=== PATIENT | male | born 1945 ===

== ENCOUNTER 2017-11-22 14:56 | Observation (INO) | payer MEDICARE, OTHER ==
[2017-11-22 15:13] VITALS: BMI 28.8
[2017-11-22] MEDS ORDERED: Aspirin 325 mg EC Tablets PO STA (15:25)
[2017-11-22] MEDS ORDERED: Sodium Chloride 0.9% 1,000 ML IV ONE (15:25)
--- NOTE | 2017-11-22 15:35 | C.PDOC ---
History Of Present Illness 72 y/o male presents to ED sent by PMD for abnormal EKG and with c/o back pain. Patient states yesterday he developed midsternal sharp severe chest pain while walking his child from school associated with sob. Patient states he took 2 Advil which resolved chest pain, but today back pain persisted. Patient denies fever, chills, cough, leg swelling, abdominal pain or nausea. MICHELET Risk Score for UA/NSTEMI - MICHELET Risk Score Age > 64: YES 3 or more CAD Risk Factors: NO Known CAD (Stenosis greater than 50%): NO Aspirin use in past 7 days: NO Severe Angina: YES MICHELET Score: 2 % risk at 14 days of: all cause mortality, new or recurrent IN, or severe recurrent ischemia requiring urgen revascularization: 8% Curb-65 Severity Score - CURB-65 Severity Score Confusion: No Bun >19mg/dl (>7mmol/L): No Respiratory Rate greater than/equal to 30: No Systolic BP <90 or Diastolic BP less than/equal 60mmHg: No Age >64: Yes Curb-65 Score: 1 Percentage 30-day mortality: 2.7% Time Seen by Provider: 11/22/17 15:16 Chief Complaint (Nursing): Chest Pain History Per: Patient History/Exam Limitations: no limitations Onset/Duration Of Symptoms: Days Current Symptoms Are (Timing): Still Present Past Medical History Reviewed: Historical Data, Nursing Documentation, Vital Signs Vital Signs: Last Vital Signs Temp 98.2 F 11/22/17 15:05 Pulse 75 11/22/17 16:48 Resp 16 11/22/17 16:48 BP 140/88 11/22/17 16:48 Pulse Ox 100 11/22/17 17:44 - Medical History PMH: No Chronic Diseases Surgical History: Appendectomy Family History: States: No Known Family Hx - Social History Hx Alcohol Use: No Hx Substance Use: No - Immunization History Hx Tetanus Toxoid Vaccination: No Hx Influenza Vaccination: No Hx Pneumococcal Vaccination: No Review Of Systems Constitutional: Negative for: Fever, Chills Cardiovascular: Positive for: Chest Pain Respiratory: Positive for: SOB with Excertion. Negative for: Cough Gastrointestinal: Negative for: Nausea, Vomiting Genitourinary: Negative for: Dysuria, Hematuria Musculoskeletal: Positive for: Back Pain Skin: Negative for: Rash Physical Exam - Physical Exam Appears: Non-toxic, No Acute Distress Skin: Warm, Dry, No Rash Head: Atraumatic, Normacephalic Eye(s): bilateral: Normal Inspection Oral Mucosa: Moist Neck: Supple Cardiovascular: Rhythm Regular Respiratory: Normal Breath Sounds, No Rales, No Rhonchi, No Wheezing Gastrointestinal/Abdominal: Soft, No Tenderness, No Guarding, No Rebound Extremity: No Pedal Edema, No Calf Tenderness, Capillary Refill (<2 seconds) Neurological/Psych: Oriented x3, Normal Speech (speaking in full sentences) ED Course And Treatment - Laboratory Results Result Diagrams: 11/22/17 16:01 11/22/17 16:01 Lab Interpretation: No Acute Changes ECG: Interpreted By Me, Viewed By Me (DR Falcon) ECG Rhythm: Sinus Rhythm ECG Interpretation: No Acute Changes Rate From EC (q waves in lead 2) O2 Sat by Pulse Oximetry: 100 (RA) Pulse Ox Interpretation: Normal Medical Decision Making Medical Decision Making: Impression: Chest pain Plan: * EKG * Blood work * Aspirin * CXR * IV fluids * UA Progress: CXR shows Enlarged cardiomediastinal silhouette. Mediastinal prominence may be secondary to aortic ectasia, however alternatives including adenopathy are not excluded, as per radiologist Dr Valdivia Labs reviewed and unremarkable, no leukocytosis, no renal disease or electrolyte abnormality. Lipid panel WNL and troponin negative. During ED observation patient remained in no acute distress. He complains of pain to upper back mild at this time. Based on history and findings recommend observation admission for chest pain, with serial labs and trop. Patient agrees to plan. Will call Dr Rahman who admits for Dr Thompson [phone] Rahman [phone] Rahman who accepted obs-tele admission for patient Disposition - Disposition Disposition: HOSPITALIZED Disposition Time: 16:55 Condition: STABLE - POA Present On Arrival: None - Clinical Impression Clinical Impression: Chest pain - PA / MANAGER PROJECT / Resident Statement MD/DO has reviewed & agrees with the documentation as recorded. - Scribe Statement The provider has reviewed the documentation as recorded by the Aureaibmike Blount All medical record entries made by the Scribe were at my direction and personally dictated by me. I have reviewed the chart and agree that the record accurately reflects my personal performance of the history, physical exam, medical decision making, and the department course for this patient. I have also personally directed, reviewed, and agree with the discharge instructions and disposition. Decision To Admit - Pt Status Changed To: Hospital Disposition Of: Observation - . Bed Request Type: Telemetry Admitting Physician: Sally Rahman Patient Diagnosis: Chest pain
[2017-11-22 16:06] LABS: BASO % 0.5 % (0.0-2.0); EOS # 0.1 K/uL (0.0-0.7); EOS % 1.7 % (0.0-4.0); HEMOGLOBIN 14.5 g/dL (12.0-18.0); LYMPH % 42.3 % (20.0-40.0); MEAN CELL VOLUME 94.1 fL (80.0-94.0); MEAN CORPUSCULAR HEMOGLOBIN 31.2 pg (27.0-31.0); MEAN CORPUSCULAR HGB CONC 33.2 g/dL (33.0-37.0); MONO # 0.9 K/uL (0.0-0.8); MONO % 12.4 % (0.0-10.0); NEUT # 3.1 K/uL (1.8-7.0); NEUT % 43.1 % (50.0-75.0); NRBC % 0.2 % (0.0-2.0); RBC 4.63 Mil/uL (4.40-5.90); RED CELL DISTRIBUTION WIDTH 12.8 % (11.5-14.5); WHITE BLOOD COUNT 7.2 K/uL (4.8-10.8)
[2017-11-22] MEDS ORDERED: Sodium Chloride 0.9% 1,000 ML ONE (16:08)
[2017-11-22] MEDS ORDERED: Aspirin 325 mg EC Tablets PO ONE (16:08)
[2017-11-22 16:14] LABS: INR 1.2; PROTHROMBIN TIME 13.1 SECONDS (9.7-12.2)
--- NOTE | 2017-11-22 16:14 | RAD ---
HISTORY: chest pain COMPARISON: None available. TECHNIQUE: Chest PA and lateral FINDINGS: LUNGS: No focal consolidation. Please note that chest x-ray has limited sensitivity for the detection of pulmonary masses. PLEURA: No significant pleural effusion identified. No definite pneumothorax . CARDIOVASCULAR: Enlargement of the cardiomediastinal silhouette. Enlargement of the mediastinum may be secondary to aortic ectasia however alternatives including adenopathy are not excluded. OSSEOUS STRUCTURES: Degenerative changes. VISUALIZED UPPER ABDOMEN: Unremarkable. OTHER FINDINGS: None. IMPRESSION: Enlarged cardiomediastinal silhouette. Mediastinal prominence may be secondary to aortic ectasia, however alternatives including adenopathy are not excluded. CT of the chest may be considered with IV contrast if indicated.
[2017-11-22 16:19] LABS: ALB/GLOB RATIO 1.1 (1.0-2.1); ALT/SGPT 39 U/L (21-72); AST/SGOT 31 U/L (17-59); BLOOD UREA NITROGEN 11 mg/dL (9-20); GFR NON-AFRICAN AMERICAN > 60; HDL CHOLESTEROL 52 mg/dL (30-70)
[2017-11-22 16:29] LABS: LDL CHOLESTEROL 91 mg/dL (0-129)
[2017-11-22 16:31] LABS: B-TYPE NATRIURETIC PEPTIDE 168 pg/mL (0-900); CK-MB 0.69 ng/mL (0.0-3.38)
[2017-11-22 16:43] LABS: URINE BILIRUBIN NEGATIVE (NEGATIVE); URINE BLOOD NEGATIVE (NEGATIVE); URINE CLARITY Clear (Clear); URINE COLOR Straw (YELLOW); URINE GLUCOSE (UA) NORMAL (Normal); URINE LEUKOCYTE ESTERASE NEG Leu/uL (Negative); URINE PROTEIN NEGATIVE (NEGATIVE); URINE UROBILINOGEN NORMAL mg/dL (0.2-1.0)
[2017-11-22] MEDS ORDERED: Nitroglycerin 2% Ointment Foilpak UD TOP PRN (18:04)
[2017-11-22] MEDS ORDERED: Nitroglycerin 2% Ointment Foilpak UD TOP ONE (18:46)
--- NOTE | 2017-11-22 19:05 | CP.PCM.HP ---
History of Present Illness - History of Present Illness History of Present Illness: Chief complaint: Chest pain History of present illness: 72-year-old male with no significant past medical history other than high cholesterol came to the office today, complaining of sudden onset of chest pain started yesterday, and the whole night he was having sudden onset of pain, radiating to the left side of the shoulder. Pain worse severe in character, and also associate with the sweating, and ADC feeling of palpitation. But he did not go to the hospital. He came to the office today. The pain is subsided now. But he is having some pain in the back. Is feeling otherwise well. EKG done in the office, showing some EKG changes, immediately patient was sent to the emergency room. Past medical history: High cholesterol Allergies no known drug allergy Personal history nonsmoker nonalcoholic. Family history noncontributory Review of systems: Patient is having no headache or visual symptoms, some back pain in the upper neck and upper back noted. No chest pain currently. Abdominal pain negative no leg swelling On examination: Vital signs stable. Chest bilateral good air entry no wheezing or rales noted regular heart sound Abdomen soft nontender. Labs reviewed Nonspecific. EKG nonspecific pain Chest x-ray showing evidence of by basilar atelectasis, hilar prominence. Recommend CT of the chest with contrast Assessment: 72-year-old male came to the office with a sudden onset of chest pain started yesterday. Now subsided. EKG changes noted. Also the x-ray chest changes noted. Recommended to have a CAT scan of the chest. Cardiology workup. Ongoing EKG changes with the chest pain. Cardiology workup. Will follow the patient. Explained to the patient in details about the plan in the office with Dr. Thompson Present on Admission - Present on Admission Any Indicators Present on Admission: No History of DVT/PE: No History of Uncontrolled Diabetes: No Urinary Catheter: No Decubitus Ulcer Present: No Past Patient History - Past Social History Smoking Status: Never Smoked - PSYCHIATRIC Hx Substance Use: No - SURGICAL HISTORY Hx Appendectomy: Yes Meds Allergies/Adverse Reactions: Allergies Allergy/AdvReac Type Severity Reaction Status Date / Time No Known Allergies Allergy Verified 11/22/17 15:12 Results - Vital Signs Recent Vital Signs: Last Vital Signs Temp 98.2 F 11/22/17 15:05 Pulse 73 11/22/17 18:42 Resp 22 11/22/17 18:42 BP 120/73 11/22/17 18:42 Pulse Ox 97 11/22/17 18:42 - Labs Result Diagrams: 11/22/17 16:01 11/22/17 16:01 Labs: Laboratory Results - last 24 hr 11/22/17 11/22/17 11/22/17 16:01 16:01 16:01 WBC 7.2 RBC 4.63 Hgb 14.5 Hct 43.6 MCV 94.1 H MCH 31.2 H MCHC 33.2 RDW 12.8 Plt Count 143 MPV 9.0 Neut % (Auto) 43.1 L Lymph % (Auto) 42.3 H Knott % (Auto) 12.4 H Eos % (Auto) 1.7 Baso % (Auto) 0.5 Neut # (Auto) 3.1 Lymph # (Auto) 3.0 Knott # (Auto) 0.9 H Eos # (Auto) 0.1 Baso # (Auto) 0.0 PT 13.1 H INR 1.2 APTT 37 H Sodium 139 Potassium 3.9 Chloride 101 Carbon Dioxide 30 Anion Gap 12 BUN 11 Creatinine 0.6 L Est GFR ( Amer) > 60 Est GFR (Non-Af Amer) > 60 Random Glucose 92 Calcium 9.0 Total Bilirubin 2.0 H AST 31 ALT 39 Alkaline Phosphatase 70 Total Creatine Kinase 93 CK-MB (Mass) 0.69 Troponin I < 0.0120 NT-Pro-B Natriuret Pep 168 Total Protein 7.7 Albumin 4.0 Globulin 3.8 Albumin/Globulin Ratio 1.1 Triglycerides 52 Cholesterol 162 LDL Cholesterol Direct 91 HDL Cholesterol 52 Urine Color Urine Clarity Urine pH Ur Specific Cushing Urine Protein Urine Glucose (UA) Urine Ketones Urine Blood Urine Nitrate Urine Bilirubin Urine Urobilinogen Ur Leukocyte Esterase Urine RBC (Auto) 11/22/17 16:37 WBC RBC Hgb Hct MCV MCH MCHC RDW Plt Count MPV Neut % (Auto) Lymph % (Auto) Knott % (Auto) Eos % (Auto) Baso % (Auto) Neut # (Auto) Lymph # (Auto) Knott # (Auto) Eos # (Auto) Baso # (Auto) PT INR APTT Sodium Potassium Chloride Carbon Dioxide Anion Gap BUN Creatinine Est GFR ( Amer) Est GFR (Non-Af Amer) Random Glucose Calcium Total Bilirubin AST ALT Alkaline Phosphatase Total Creatine Kinase CK-MB (Mass) Troponin I NT-Pro-B Natriuret Pep Total Protein Albumin Globulin Albumin/Globulin Ratio Triglycerides Cholesterol LDL Cholesterol Direct HDL Cholesterol Urine Color Straw Urine Clarity Clear Urine pH 7.0 Ur Specific Cushing 1.002 L Urine Protein Negative Urine Glucose (UA) Normal Urine Ketones Negative Urine Blood Negative Urine Nitrate Negative Urine Bilirubin Negative Urine Urobilinogen Normal Ur Leukocyte Esterase Neg Urine RBC (Auto) < 1
[2017-11-22] MEDS ORDERED: Iodixanol 320 MG/ML 100 ML BOTTLE IV ONE ×2 (20:22→20:59)
[2017-11-22 22:49] VITALS: RESP 20
[2017-11-23 01:37] LABS: CK-MB 0.91 ng/mL (0.0-3.38)
[2017-11-23] MEDS ORDERED: Caffeine Citrated **INJ** 20 MG/ML IV ONE (07:47)
[2017-11-23 08:29] VITALS: BP 124/80; PULSE 69; TEMP 97.7; O2SAT 95
--- NOTE | 2017-11-23 10:07 | CT ---
Date of service: 11/22/2017 PROCEDURE: CT Chest with contrast (Pulmonary Angiogram) HISTORY: aortic ectasia COMPARISON: Chest radiograph 11/22/2017. TECHNIQUE: Axial computed tomography images were obtained of the chest in the pulmonary arterial phase of enhancement. Coronal and sagittal reformatted images were created and reviewed. Intravenous contrast dose: Visipaque 320, 100 cc Radiation dose: Total exam DLP = 564.73 mGy-cm. This CT exam was performed using one or more of the following dose reduction techniques: Automated exposure control, adjustment of the mA and/or kV according to patient size, and/or use of iterative reconstruction technique. FINDINGS: PULMONARY ARTERIES: Unremarkable. No pulmonary embolism. AORTA: The ascending thoracic aorta is mildly dilated up to 4.2 cm. The thoracic aorta is normal caliber by the proximal arch which measures 3.4 cm. LUNGS: Unremarkable. No nodule, mass or pulmonary consolidation. PLEURAL SPACES: Unremarkable. No effusion or pneumothorax. HEART: Cardiomegaly. No pulmonary vascular congestion. No pericardial effusion. LYMPH NODES: No lymphadenopathy. 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 OTHER FINDINGS: Cirrhotic liver pattern. No focal mass identified. A small calcified granuloma seen at the dome at the right periphery. IMPRESSION: 1. No CT evidence of pulmonary embolus. 2. Dilatation of the ascending thoracic aorta is identified up to 4.2 cm terminating at the anterior arch as discussed above. 3. No infiltrate, pleural or pericardial effusion or significant lymphadenopathy. 4. Cirrhotic liver incidentally noted.
[2017-11-23 14:25] LABS: CK-MB 0.97 ng/mL (0.0-3.38)
--- NOTE | 2017-11-23 15:12 | CP.PCM.PN ---
Subjective - Date & Time of Evaluation Date of Evaluation: 11/23/17 Time of Evaluation: 15:12 - Subjective Subjective: PT CLEARED AND D/C BY DR. JOHNSON. TO F/U WITH HIM IN THE OFFICE WELL WITH Mick DIANE. SEE BELOW FOR D/C INSTRUCTIONS SENT WITH PT. NO FURTHER ORDERS. -FOLLOW UP WITH DR. JOHNSON IN THE OFFICE WITHIN 5 DAYS---CALL THE OFFICE TO MAKE AN APPOINTMENT. -FOLLOW UP WITH DR. DIANE (CARDIOLOGY) IN THE OFFICE WITHIN 5-7 DAYS---CALL THE OFFICE TO MAKE AN APPOINTMENT. -CONTINUE HOME MEDICATIONS USUAL. NO NEW PRESCRIPTIONS. -FOR FURTHER CONCERNS OR QUESTIONS, CONTACT DR. JOHNSON'S OFFICE. Objective - Vital Signs/Intake and Output Vital Signs (last 24 hours): Temp Pulse Resp BP Pulse Ox 97.7 F 69 20 124/80 95 11/23/17 08:28 11/23/17 08:28 11/23/17 08:28 11/23/17 08:28 11/23/17 08:28 Intake and Output: 11/23/17 11/23/17 06:59 18:59 Intake Total 0 Balance 0 - Medications Medications: Current Medications Nitroglycerin (Nitro-Bid 2% Oint) 1 ea TOP Q6 PRN PRN Reason: chest pain Pantoprazole Sodium (Protonix Inj) 40 mg IVP DAILY CHARLENE Last Admin: 11/23/17 10:02 Dose: Not Given Pneumococcal Polyvalent Vaccine (Pneumovax 23 Vaccine) 0.5 ml IM .ONCE ONE Stop: 11/25/17 11:01 - Labs Labs: 11/22/17 16:01 11/22/17 16:01 PT 13.1 SECONDS (9.7-12.2) H 11/22/17 16:01 INR 1.2 11/22/17 16:01 APTT 37 SECONDS (21-34) H 11/22/17 16:01
--- NOTE | 2017-11-23 18:39 | CP.PCM.PCO ---
Physician Communication Note - Physician Communication Note Physician Communication Note: Pt was d/c after cardiac stress test. Preliminary read was negative stress
--- NOTE | 2017-11-23 22:27 | CARD ---
APPROVED REPORT Date of service: 11/23/2017 EXAM: Two-dimensional and M-mode echocardiogram with Doppler and color Doppler. Other Information Quality : GoodRhythm : 2D DIMENSIONS IVSd0.9 (0.7-1.1cm)LVDd4.4 (3.9-5.9cm) PWd0.8 (0.7-1.1cm)LVDs3.1 (2.5-4.0cm) FS (%) 28.1 %LVEF (%)55.0 (>50%) M-Mode DIMENSIONS Left Atrium (MM)4.37 (2.5-4.0cm)IVSd0.94 (0.7-1.1cm) Aortic Root3.22 (2.2-3.7cm)LVDd4.95 (4.0-5.6cm) Aortic Cusp Exc.2.13 (1.5-2.0cm)PWd0.83 (0.7-1.1cm) FS (%) 34 %LVDs3.24 (2.0-3.8cm) LVEF (%)63 (>50%) Aortic Valve AI P 1/2 [id number] Mitral Valve MV E Uzyyyisv84.9cm/sMV A Gwfdwlen78.1cm/sE/A ratio0.8 TDI E/Lateral E'0.0E/Medial E'0.0 Tricuspid Valve TR Peak Wshonrew869fq/sTR Peak Gr.29gpOhDVRF82wyBm LEFT VENTRICLE The left ventricle is normal size. There is normal left ventricular wall thickness. Left ventricle systolic function is normal. The Ejection Fraction is 55-60%. There is normal LV segmental wall motion. Tissue Doppler imaging reveals abnormal left ventricular diastolic dysfunction. RIGHT VENTRICLE The right ventricle is normal size. There is normal right ventricular wall thickness. The right ventricular systolic function is normal. ATRIA The left atrium size is normal. The right atrium size is normal. The interatrial septum is intact with no evidence for an atrial septal defect. AORTIC VALVE The aortic valve is normal in structure. No aortic regurgitation is present. There is no aortic valvular stenosis. There is no aortic valvular vegetation. MITRAL VALVE The mitral valve is normal in structure. There is no evidence of mitral valve prolapse. There is no mitral valve stenosis. Mitral regurgitation is trace. TRICUSPID VALVE The tricuspid valve is normal in structure. There is mild tricuspid regurgitation. Right ventricular systolic pressure is estimated at less than 30 mmHg. There is no pulmonary hypertension. PULMONIC VALVE The pulmonic valve is not well visualized. There is no pulmonic valvular regurgitation. GREAT VESSELS The aortic root is normal in size. PERICARDIAL EFFUSION There is no significant pericardial effusion. <Conclusion> Left ventricle systolic function is normal. The Ejection Fraction is 55-60%. Diastolic dysfunction. No aortic regurgitation is present. Mitral regurgitation is trace. There is mild tricuspid regurgitation. There is no pulmonary hypertension. There is no pulmonic valvular regurgitation.
--- NOTE | 2017-11-24 06:33 | CARD ---
APPROVED REPORT Date of service: 11/23/2017 Protocol: LEXISCAN Test Type: LEXISCAN STRESS Test Indications: CHEST PAIN Target HR: 150 bpm Resting ECG: NSR Resting Heart Rate: 76 bpm Resting Blood Pressure: 128/80mmHg submaximum (85%): 128 bpm TEST SUMMARY PREINFSNHYPERV.00:[id number]/80.0. INFUSIONDOSE 100:[id number]/80.0. QMBCAWFPR26:[id number]/80.1. PROCEDURE Pharmacologic stress testing was performed using 0.4mg per 5ml of regadenoson given intravenously over 7-10 seconds. POST EXERCISE Reason for Termination: Protocol Completed Target HR: No Max HR: 79 bpm 72% of Maximum Predicted HR: 150 bpm Exercise duration: 00:30 min:sec, 0 Stage Exercise capacity: 1.0METs Max Blood Pressure: 130/80mmHg Blood Pressure response to exercise: normal resting BP - appropriate response Heart Rate response to exercise: appropriate Chest Pain: No, none Angina index: 0 Arrhythmia: No, none ST Change: No, none Deviation: 0 mm INTERPRETATION Stress EKG Conclusion: NEGATIVE LEXISCAN STRESS TEST NORMAL BP RESPONSE TO LEXISCAN NUCLEAR STUDIES TO BE READ SEPARATELY EXAM: Myocardial Perfusion REST/STRESS Imaging Protocol The imaging protocol used to acquire images was Rest Tc-99m/stress Tc-99m 1 day Rest Spect myocardial perfusion imaging was performed in supine position 42 minutes following the injection of 13.2 mCi of Tc-99 Myoview. Gated Rest Spect was performed 41 minutes after intravenous 33 mCi Tc-99 Myoview injection. The images were gated to evaluate regional wall motion and calculate ventricular ejection fraction.Images were reconstructed using backfilter projection method in short horizontal and verticle long axis. Spect slices were generated. RESTING DATA EDV66.52ipMD3.30L/min1/3 Pk. Filling Rate1.26EDV/sec LV Time to Pk. Filling Wcyk979.71msec ESV14.00mlMyocardial Hnfi921.00gLV Time to Pk. Ejection Jjzb338.62msec Pk. Fill Rate2.65EDV/secAv. Heart Rate65.00bpm EF79.00%Pk. Emptying Rate4.06ESV/sec STRESS DATA EDV65.55asSH2.00L/min ESV10.00mlMyocardial Fcto393.00g Pk. Fill Rate2.54EDV/sec EF85.00%Pk. Emptying Rate4.32ESV/sec 1/3 Pk. Filling Rate1.69EDV/secRegional WT score at stress:0.00 LV Time to Pk. Filling Rate:112.28msecRegional WM score at stress:0.00 LV Time to Pk. Ejection Rate:183.48msecSummed WT score at stress:5.00 Av. Heart Rate73.00bpmSummed WM score at stress:0.00 LV Perf. Quant 17 Seg. SSS0.00 17 Seg. SRS1.00 17 Seg. SDS0.00 Stress Defect Extent (% LAD)0.00Rest Defect Extent (% LAD)0.00Rev. Defect Extent (% LAD)0.00 Stress Defect Extent (% LCX)0.00Rest Defect Extent (% LCX)17.50Rev. Defect Extent (% LCX)0.00 Stress Defect Extent (% RCA)0.00Rest Defect Extent (% RCA)0.00Rev. Defect Extent (% RCA)0.00 Stress Defect Extent (% ELY)0.00Rest Defect Extent (% ELY)3.00Rev. Defect Extent (% ELY)0.00 IMPRESSION Normal Myocardial Perfusion exercise stress study Left Ventricle LV Function:Left ventricle systolic function is normal. The Ejection Fraction is >70%. Metabolism/Perfusion There are no perfusion/metabolism defects. Conclusion 1. There is no scan evidence of stress-induced reversible ischemia noted. 2. Left ventricle systolic function is normal. 3. The Ejection Fraction is >70%.
--- NOTE | 2017-11-24 07:00 | CARD ---
APPROVED REPORT Date of service: 11/22/2017 EKG Measurement Heart [id number] VA [id number] <Conclusion> Normal sinus rhythm Normal ECG
--- NOTE | 2017-11-24 21:56 | CARD ---
APPROVED REPORT Date of service: 11/23/2017 EKG Measurement Heart [id number] MS [id number] <Conclusion> Normal sinus rhythm Left axis deviation Abnormal ECG
[2017-11-25] MEDS ORDERED: Pneumococcal 23-Valent Vaccine IM ONE (11:00)
== END 2017-11-23 15:50 | disposition home or self-care (01) ==
LOC: C.ER 14:56 → C.9E 16:55 → C.6T 21:44
PROVIDERS: ADMIT Internal Medicine; ATTEND Internal Medicine
DX: R07.89 Other chest pain (principal); E78.00 Pure hypercholesterolemia, unspecified
CPT/HCPCS: 36415; 71046; 71275; 78452; 80053; 80061; 81001; 83880; 84484; 85025; 85610; 85730; 93017; 93306; 96360; 96374; 99285; A9502; C9113; G0378; J0706; J2785; J7030; Q9967